=== PATIENT | male | born 2005 | race Hispanic/Latino ===

== ENCOUNTER 2023-07-19 18:38 | Emergency (ER) | payer BC ==
[2023-07-19 19:18] VITALS: O2SAT 100
[2023-07-19 19:27] LABS: STREPTOCOCCUS GRP A ANTIGEN POSITIVE (NEGATIVE)
[2023-07-19 19:44] LABS: INFLUENZAE A&B ANTIGEN (RAPID) NEGATIVE (NEGATIVE)
[2023-07-19] MEDS ORDERED: AMOX TR-K CLV1 EAC2 PO (20:02)
== END 2023-07-19 20:22 | disposition home or self-care (01) ==
LOC: ER 18:44
DX: R05.9 Cough, unspecified (principal); U07.1 COVID-19; J02.0 Streptococcal pharyngitis; F17.210 Nicotine dependence, cigarettes, uncomplicated
CPT/HCPCS: 83518; 87400; 99283; U0002